=== PATIENT | female | born 1955 | race Caucasian/White ===

== ENCOUNTER 2022-11-16 04:30 | Day surgery (SDC) | payer BC ==
[2022-11-16 07:44] VITALS: BMI 33.3
[2022-11-16 09:21] VITALS: TEMP 98
[2022-11-16 09:51] VITALS: RESP 18
[2022-11-16 09:52] VITALS: BP 140/60; PULSE 61
== END 2022-11-16 10:25 | disposition home or self-care (01) ==
LOC: JASU-ENDO 04:30
PROVIDERS: ATTEND Student in an Organized Health Care Education/Training Program
PROC: 0DBM8ZX Excision of Descending Colon, Via Natural or Artificial Opening Endoscopic, Diagnostic (ICD-10-PCS; principal; 2022-11-16 08:30)
DX: Z12.11 Encounter for screening for malignant neoplasm of colon (principal); K63.5 Polyp of colon; K57.30 Diverticulosis of large intestine without perforation or abscess without bleeding; K59.89 Other specified functional intestinal disorders; Z86.010 Personal history of colon polyps
CPT/HCPCS: 88305-TC